=== PATIENT | male | born 1965 | race Caucasian/White ===

== ENCOUNTER 2021-03-21 13:29 | Emergency (ER) | payer BC ==
[~2021-03-21] VITALS: Ht 177.8 cm; Wt 90.9 kg
[~2021-03-21 13:29] MED LIST: HYDR1TAB PO; LIDOcaine 1% W/epiNEPHrine 1:100,000 20ml vial ONE; NO HOME MEDS
[2021-03-21 13:32] VITALS: BP 157/88
[2021-03-21] MEDS ORDERED: HYDR-3965 PO (17:23)
[2021-03-21] MEDS ORDERED: AMOX-422 PO (17:23)
[2021-03-21] MEDS ORDERED: HYDROcodone/acetaminophen 10/325mg tab PO ONE (17:25)
== END 2021-03-21 17:35 | disposition home or self-care (01) ==
LOC: ER 13:30
DX: S62.522B Displaced fracture of distal phalanx of left thumb, initial encounter for open fracture (principal); X58.XXXA Exposure to other specified factors, initial encounter; Y93.G9 Activity, other involving cooking and grilling; Y92.89 Other specified places as the place of occurrence of the external cause; Y99.8 Other external cause status
CPT/HCPCS: 11760; 73140; 99284

== ENCOUNTER 2022-03-02 09:03 | Emergency (ER) | payer SELFPAY ==
[~2022-03-02] VITALS: Ht 180.3 cm; Wt 90.9 kg
[~2022-03-02 09:03] MED LIST changes: -LIDOcaine 1% W/epiNEPHrine 1:100,000 20ml vial ONE
[2022-03-02 09:12] VITALS: BP 142/94
[2022-03-02] MEDS ORDERED: BEBTELOVIMAB 175 MG/2 ML VIAL IV ONE (10:40)
[2022-03-02] MEDS ORDERED: BUDE180A INH (10:42)
[2022-03-02] MEDS ORDERED: DEXA6TAB6 PO (10:42)
[2022-03-02] MEDS ORDERED: ALBU6.7H9 INH (10:42)
== END 2022-03-02 11:58 | disposition home or self-care (01) ==
LOC: ER 09:03
DX: U07.1 COVID-19 (principal); Z79.899 Other long term (current) drug therapy
CPT/HCPCS: 99284; M0222; Q0222

== ENCOUNTER 2023-04-06 10:19 | Day surgery (SDC) | payer MEDICAID ==
[2023-04-01 14:54] LABS: BILIRUBIN,URINE NEGATIVE (Neg); CLARITY,URINE CLEAR (Clear); COLOR,URINE YELLOW (Yellow); GLUCOSE, URINE NEGATIVE (Neg); KETONES,URINE NEGATIVE (Neg); LEUKOCYTE ESTERASE ,URINE NEGATIVE (Neg); NITRITES, URINE NEGATIVE (Neg); OCCULT BLOOD,URINE NEGATIVE (Neg); PROTEIN,URINE NEGATIVE (Neg); UROBILINOGEN,URINE 0.2 E.U/dL (0.2-1.0)
[2023-04-01 15:00] LABS: UA COLLECTION TYPE CLN CATCH MIDSTREAM
[2023-04-01 15:07] LABS: BASOPHILS % (AUTO) 0.6 % (0-1); EOSINOPHILS # (AUTO) 0.2 X10'3 (0-0.9); EOSINOPHILS % (AUTO) 2.7 % (0-6); LYMPHOCYTES # (AUTO) 1.3 X10'3 (1.1-4.8); LYMPHOCYTES % (AUTO) 18.2 % (21-51); MEAN CORPUSCULAR HEMOGLOBIN 30.5 PG (27.0-31.0); MEAN CORPUSCULAR HGB CONC 33.7 g/dL (33.0-36.5); MEAN CORPUSCULAR VOLUME 90.4 FL (78-98); MEAN PLATELET VOLUME 8.5 FL (7.4-10.4); MONOCYTES # (AUTO) 0.5 X10'3 (0-0.9); MONOCYTES % (AUTO) 7.1 % (2-12); NEUTROPHILS % (AUTO) 71.4 % (42-75); PRE OP HEMATOCRIT 49.5 % (42.0-52.0); PRE OP HEMOGLOBIN 16.7 g/dL (14.0-17.9); PRE OP PLATELET COUNT 224 X10'3 (140-440); PRE OP WHITE BLOOD COUNT 6.9 10'3 (4.8-10.8); RED BLOOD COUNT 5.48 X10'6 (4.70-6.10); RED CELL DISTRIBUTION WIDTH 13.9 % (11.5-14.5)
[2023-04-01 15:15] LABS: ALBUMIN 4.2 G/DL (3.4-5.0); ALBUMIN/GLOBULIN RATIO 1.1 (1.1-1.5); ALKALINE PHOSPHATASE 107 IU/L (46-116); BLOOD UREA NITROGEN 11 MG/DL (7-18); BUN/CREATININE RATIO 11.1 (10.0-20.0); CALCIUM 9.7 MG/DL (8.5-10.1); CHLORIDE 102 MMOL/L (99-107); CREATININE 0.99 MG/DL (0.60-1.10); PRE OP ALT 42 U/L (30-65); PRE OP ANION GAP 7 (8-16); PRE OP AST 21 U/L (10-37); PRE OP BILIRUB, TOTAL 0.5 MG/DL (0.0-1.0); PRE OP GLUCOSE 94 MG/DL (70-104); PRE OP POTASSIUM 4.2 MMOL/L (3.4-5.1); PRE OP SODIUM 136 MMOL/L (135-145); TOTAL CARBON DIOXIDE 27.3 MMOL/L (24-32); TOTAL PROTEIN 7.9 G/DL (6.4-8.2); eGFR 78 ML/MIN
[2023-04-06] VITALS (17 sets, daily range): BP systolic 127–145; BP diastolic 72–98; PULSE 67–106; RESP 11–24; TEMP 98.3; O2SAT 92–99
[~2023-04-06] VITALS: Ht 177.8 cm; Wt 85.6 kg
[~2023-04-06 10:19] MED LIST changes: -HYDR1TAB PO; +cefazolin 2gm/D5W 100mL 100 ML IV ONE; +famotidine 20mg tablet PO ONE; +ringers solution, lacted 1,000 ML IV SCH
[2023-04-06] MEDS ORDERED: BUPIVAcaine/PF 2.5 mg/ml (0.25%) 30ml vial ONE ×2 (11:36→12:25)
[2023-04-06] MEDS ORDERED: midazolam 1 mg/ML 2ml injection ONE (12:15)
[2023-04-06] MEDS ORDERED: rocuronium 10mg/ml inj IV ONE (12:15)
[2023-04-06] MEDS ORDERED: propofol inj 20 ML IV ONE (12:15)
[2023-04-06] MEDS ORDERED: fentaNYL/PF 50MCG/1 ML 2ML syringe ONE (12:15)
[2023-04-06] MEDS ORDERED: sevoflurane 250ml liquid IH ONE (12:53)
[2023-04-06] MEDS ORDERED: BUPIVAcaine/PF 2.5 mg/ml (0.25%) 30ml vial IJ ONE ×2 (13:25→14:31)
[2023-04-06] MEDS ORDERED: ondansetron/PF 4mg/2ml inj IV PRN (13:30)
[2023-04-06] MEDS ORDERED: meperidine/PF 25mg/ml syringe IV PRN ×3 (13:30)
[2023-04-06] MEDS ORDERED: morphine 4 MG/ML inj SYRINge IV PRN (13:30)
[2023-04-06] MEDS ORDERED: morphine 2 MG/ML inj. syringe IV PRN (13:30)
[2023-04-06] MEDS ORDERED: proCHLORperazine 10 MG/2 ml inj IV PRN (13:30)
[2023-04-06] MEDS ORDERED: ringers solution, lacted 1,000 ML IV SCH (13:30)
[2023-04-06] MEDS ORDERED: dexamethasone sod phosphate 4mg/ml inj. ONE (14:10)
[2023-04-06] MEDS ORDERED: ondansetron/PF 4mg/2ml inj ONE (14:10)
[2023-04-06] MEDS ORDERED: acetaminophen 1,000mg/100ml IV 100 ML IV ONE (14:12)
[2023-04-06] MEDS ORDERED: neostigmine methylsulfate 1 MG/ML 10ml vial ONE (14:40)
[2023-04-06] MEDS ORDERED: glycopyrrolate 0.2mg/ml inj ONE (14:40)
--- NOTE | 2023-04-06 17:31 | NUR ---
Received from OR via [facility] IN STABLE CONDITION , accompanied by Anesthesiologist and SUPERVISOR [employer]HALT PAVING report given by SUPERVISOR [employer]HALT PAVING AND Anesthesiolgist. Addendum: 04/06/23 at 1733 by Viviana Herrera RN Amended: Links added.
--- NOTE | 2023-04-06 17:39 | NUR ---
PATIENT DISCHARGED FROM PACU IN STABLE CONDITION AFTER WRITTEN AND VERBAL DISCHARGE INSTRUCTIONS GIVEN TO PATIENT. PATIENT GAVE VERBAL UNDERSTANDING OF INSTRUCTIONS GIVEN. 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 Addendum: 04/06/23 at 1750 by Viviana Herrera RN Amended: Links added.
== END 2023-04-06 17:39 | disposition home or self-care (01) ==
LOC: PAS 10:19
PROVIDERS: ATTEND Surgery
DX: K42.0 Umbilical hernia with obstruction, without gangrene (principal); K40.90 Unilateral inguinal hernia, without obstruction or gangrene, not specified as recurrent; Z79.899 Other long term (current) drug therapy; Z98.890 Other specified postprocedural states
CPT/HCPCS: 36415; 49592; 80053; 81003; 82948; 85025; 93005; C1781; J0131; J0690; J1100; J2250; J2405; J2704; J2710; J3010; J3490; J7030; J7120; Z7506; Z7508; Z7512; A4215; A4618; C1758